=== PATIENT | female | born 1955 | race Caucasian/White ===

== ENCOUNTER 2020-01-11 10:57 | Outpatient (CLI) | payer MEDICARE, MEDICAID, SELFPAY ==
[2020-01-11 11:25] LABS: Basophils # 0.1 10^3/uL (0.0-0.1); Basophils % 1.2 %; Eosinophils # 0.2 10^3/uL (0.0-0.8); Eosinophils % 3.9 %; Hematocrit 42.9 % (37.0-47.0); Hemoglobin 13.4 g/dL (11.5-15.3); Lymphocytes # 1.4 10^3/uL (0.8-4.8); Mean Corpuscular HGB Conc 31.2 g/dL (30.0-36.0); Mean Corpuscular Hemoglobin 30.9 pg (28.0-34.0); Mean Corpuscular Volume 98.8 fL (81-99); Mean Platelet Volume 9.4 fL (7.4-10.4); Monocytes # 0.5 10^3/uL (0.2-0.9); Monocytes % 9.7 %; Neutrophils # 2.9 10^3/uL (1.8-7.7); Nucleated Red Blood Cells % 0 %; Platelet Count 212 10^3/cmm (130-400); Red Blood Count 4.34 10^6/uL (4.1-5.3); Red Cell Distribution Width 12.6 % (12.1-15.1); White Blood Count 5.1 10^3/uL (4.0-10.0)
[2020-01-11 11:47] LABS: Alanine Aminotransferase 14 U/L (0-33); Alkaline Phosphatase 87 IU/L (35-105); Anion Gap 17.1 (5-19); Aspartate Amino Transferase 16 U/L (0-32); Blood Urea Nitrogen 11 mg/dL (8-23); Calcium 9.1 mg/dL (8.5-10.5); Carbon Dioxide 23 mmol/L (22-29); Chloride 104 mmol/L (98-107); Globulin 3.2 g/dL (1.3-4.6); Glucose 100 mg/dL (65-115); Osmolality Calculated 286 mOsm/kg (285-295); Potassium 4.1 mmol/L (3.5-5.1); Sodium 140 mmol/L (136-145); Total Bilirubin 0.5 mg/dL (0.15-1.2); Total Protein 7.2 g/dL (6.6-8.7)
--- NOTE | 2020-01-11 13:29 | ONC FU_ITS ---
Dr. Her follow up note Patient: Peg Goodman Unit #: [id number]: 1955 Dicatated By: Cherelle Her M.D.Date of Visit:Jan 11, 2020 Onc Med Follow-up/Prog Note History of Present Illness: Mrs. Peg Goodman , is a 64-year-old female with history of persistent gastroesophageal reflux, bloating, recently underwent EGD on 02/15/2019 which showed semi-pedunculated polyp 2 x 5 mm in size, benign in appearance, nonbleeding , was excised and final pathology report came back 0.5 cm, unifocal well-differentiated neuroendocrine tumor mitotic rate less than to mitosis per 2 mm. Ki-67 index was less than 3%. Tumor extension in the mucosa. Lymphovascular invasion was not seen and regional lymph node were not submitted. So it was pT1 lesion. Chromogranin a level was checked on 03/31/2019 was 67 normal being less than 140 Colonoscopy was done which was of poor prep no abnormality was seen otherwise except multiple medium size diverticula present in sigmoid colon. CT scan of abdomen pelvis was done on 04/05/2019 as a follow-up and showed no evidence of metastatic disease, Octreotide scan Done on 05/03/2019 showed no evidence of metastatic disease Patient denies any facial flushing patient denies any shortness of breath or wheezing patient denies any diarrhea or skin rash. Patient denies any abdominal pain patient denies any weight loss. Came for follow-up, denies any specific complaints, no fever or chills, no nausea or vomiting, no diarrhea or constipation, no facial flushing, no wheezing, appetite is good. No abdominal pain. Patient recently underwent EGD/upper GI endoscopic sonogram on January 09, 2020 at [facility] in [facility]. As per patient she was told there was no abnormality seen except mild hiatal hernia with some inflammation. Medications: Calcium 600 1 Tablet (of 600 mg) Oral t.i.d., Sertraline HCl 1 Tablet (of 100 mg) Oral daily Allergies: No Known Allergies. Review of Systems: Review of Systems is not available for this patient. Vital Signs: Performed on Jan 11, 2020 12:31 Height - 61.00 in Weight - 147.8 lbs (HIGH) BSA - 1.66 sq.m BMI - 27.93 Temperature - 98.4 F Pulse - 75 /min Respiration - 20 /min BP - 138/67 mm(hg) O2 Sat - 97 % Pain - 0 Performance Status: 0 - Fully active, able to carry on all predisease activities without restrictions. (ECOG) Physical Examination: ENMT - No mouth sores, no thrush, no jaundice, Respiratory - Lungs are clear to auscultation, Cardiovascular - Regular rate and rhythm of heart, Abdomen - Soft, bowel sounds present, nontender, no mass palpable. Lab/Imaging: Most recent lab results are not available for this patient. Impression: Low-grade neuroendocrine tumor involving duodenal polyp status post polypectomy done on 02/15/2019 Final pathology report showed unifocal, 0.5 cm, well-differentiated neuroendocrine tumor in duodenal polyp, tumor extension into mucosa, no lymphovascular invasion was seen. No regional lymph node were submitted. As it was an incidental finding pT1.Nx,Mx CT scan of abdomen pelvis done on 04/05/2019 showed no lymphadenopathy no cervical mass no other abnormality Mitotic index was less than 2 per 2 mm Chromogranin A level checked on 03/31/2019 was 67 normal being 25-140 Octreotide scan done on 05/03/2019 showed no evidence of metastatic disease Colonoscopy done on 02/15/2019 showed no abnormality except medium-sized diverticula in sigmoid colon Plan: Discussed with patient regarding her labs white blood count 5.1 hemoglobin 13.4 crit of 42.9 platelets 212,000 CMP within normal limits Clinically, patient is doing well with no signs symptoms suggestive of recurrence of carcinoid tumor. As per patient, last Wednesday she underwent upper GI endoscopic ultrasound at [facility] in [place], and it showed no abnormality except mild hiatal hernia with mild inflammation. Her lab work-up is within normal range at this point we will see her on as-needed basis and she will continue to follow-up with Dr. ramos and her PMD. Signed By: Cherelle Her M.D. <<Signature on File>>
== END 2020-01-11 10:58 | disposition home or self-care (01) ==
LOC: ONCMED 11:00
PROVIDERS: PCP Family Medicine; Visit Provider Internal Medicine Hematology & Oncology
DX: Z08 Encounter for follow-up examination after completed treatment for malignant neoplasm (principal); Z85.060 Personal history of malignant carcinoid tumor of small intestine; K57.30 Diverticulosis of large intestine without perforation or abscess without bleeding; K44.9 Diaphragmatic hernia without obstruction or gangrene; Z86.010 Personal history of colon polyps
CPT/HCPCS: 36415; 80053; 85025; G0463

== ENCOUNTER → 2020-04-18 09:02 | Outpatient (BNVA) | payer MEDICARE, MEDICAID, SELFPAY | PROVIDERS: PCP Family Medicine; Visit Provider Family Medicine | DX: Z13.6 Encounter for screening for cardiovascular disorders (principal) | CPT/HCPCS: 80061 ==

== ENCOUNTER 2020-05-07 09:46 | Outpatient (CLI) | payer MEDICARE, MEDICAID, SELFPAY ==
--- NOTE | 2020-05-07 10:00 | MM_ITS ---
WS: [id number] BILATERAL SCREENING DIGITAL MAMMOGRAM WITH CAD HISTORY: screening mammogram COMPARISON: 01/16/2019, 04/09/2014 and 04/25/2012 Bilateral CC and MLO views submitted. Computer aided detection analyzed. Breast composition: The breasts are heterogeneously dense, which may obscure small masses. No suspici ous masses, microcalcifications or architectural distortion. Asymmetries bilaterally and dense fibrog landular tissue. No interval change or distortion. MM/[place] [id number] IMPRESSION: BI-RADS: 2-Benign FOLLOW UP: 1 Year Follow-up
== END 2020-05-07 09:47 | disposition home or self-care (01) ==
LOC: RADSHAW 09:48
PROVIDERS: PCP Family Medicine; Visit Provider Family Medicine
DX: Z12.31 Encounter for screening mammogram for malignant neoplasm of breast (principal)
CPT/HCPCS: 77067

== ENCOUNTER 2020-05-07 10:19 | Outpatient (CLI) | payer MEDICARE, MEDICAID, SELFPAY ==
--- NOTE | 2020-05-07 10:26 | US_ITS ---
WS: [id number] US soft tissue/extremity [id number] REASON FOR EXAM: right leg soft tissue mass FINDINGS: The region of clinical concern in the right lower leg was interrogated with real-time muñoz scale ultr asound. Somewhat ill-defined focus of hyper echogenicity measuring 6.2 x 5.2 x 8.7 mm was identified in the abundant subcutaneous fat. The finding is very nonspecific possibly this could represent a sma ll hematoma or infarcted or inflammatory fat. There was no blood flow in this abnormality. US/US soft tissue/extremity [id number] IMPRESSION: Nonspecific small subcutaneous fat lesion without color flow possibly inflamed fat or small hematoma. Possibly this could represent a lipoma however usually t here is less difference in echogenicity from the subcutaneous fat.
== END 2020-05-07 10:20 | disposition home or self-care (01) ==
LOC: RAD 10:23
PROVIDERS: PCP Family Medicine; Visit Provider Family Medicine
DX: R22.41 Localized swelling, mass and lump, right lower limb (principal)
CPT/HCPCS: 76882

== ENCOUNTER 2020-05-27 10:25 | Outpatient (CLI) | payer MEDICARE, MEDICAID, SELFPAY ==
--- NOTE | 2020-05-27 10:29 | CT_ITS ---
WS: [id number] NONCONTRAST CT RIGHT LOWER EXTREMITY TECHNIQUE: Noncontrast CT right lower extremity with coronal and sagittal reformatted images. CLINICAL INFORMATION: MASS OF RIGHT LOWER EXTREMITY COMPARISON: Ultrasound May 07, 2020 DLP: 1650.[address] scans at [facility] use at least one of these dose optimization techniques: automat ed exposure control; mA and/or kV adjustment per patient size (includes targeted exams where dose is matched to clinical indication); or iterative reconstruction. FINDINGS: Palpable marker overlying the left medial knee soft tissues. Normal underlying subcutaneous fat. Tiny amount of induration in the underlying subcutaneous fat which is otherwise normal in appearance. No evidence of cystic or solid lesion or drainable fluid collection. No circumscribed lesions. No significant joint effusion. Normal popliteal fossa. Vascular calcification. CT/CT lower leg RT w con [id number] IMPRESSION: 1. No evidence of underlying mass or lesion in the area of concern. No drainab le fluid collections. 2. Tiny amount of induration in the subcutaneous soft tissues in the lateral k nee likely inflammatory or posttraumatic. 3. No other significant findings.
[2020-05-27 10:52] LABS: Blood Urea Nitrogen 17 mg/dL (8-23); Glomerular Filtration Rate 84.5 mL/min (90-130)
[2020-05-27] MEDS: iohexol 300 mg/mL 100 mL Btl IV (11:05)
== END 2020-05-27 10:26 | disposition home or self-care (01) ==
LOC: RADWPI 10:29
PROVIDERS: Family Provider Family Medicine; PCP Family Medicine; Visit Provider Surgery
DX: M79.89 Other specified soft tissue disorders (principal)
CPT/HCPCS: 73701; 82565; 84520; Q9967

== ENCOUNTER → 2021-05-16 09:12 | Outpatient (BNVA) | payer MEDICARE, MEDICAID, SELFPAY | PROVIDERS: Family Provider Family Medicine; PCP Family Medicine; Visit Provider Family Medicine | DX: Z13.6 Encounter for screening for cardiovascular disorders (principal); Z12.11 Encounter for screening for malignant neoplasm of colon; Z23 Encounter for immunization; F41.9 Anxiety disorder, unspecified; F32.9 Major depressive disorder, single episode, unspecified; Z79.899 Other long term (current) drug therapy | CPT/HCPCS: 80053; 80061; 85025 ==

== ENCOUNTER → 2021-07-07 15:44 | Outpatient (BNVA) | payer MEDICARE, MEDICAID, SELFPAY | PROVIDERS: Family Provider Family Medicine; PCP Family Medicine; Visit Provider Surgery | DX: Z01.812 Encounter for preprocedural laboratory examination (principal); Z20.822 Contact with and (suspected) exposure to COVID-19 | CPT/HCPCS: 87635 ==

== ENCOUNTER 2021-07-11 08:09 | Day surgery (SDC) | payer MEDICARE, MEDICAID, SELFPAY ==
[2021-07-10 14:51] VITALS: BMI 27.3
--- NOTE | 2021-07-11 08:19 | ANES.PREANE2 ---
Pre-Anesthetic Assessment Pre-Anesthetic Assessment: Height/Weight: Height 1.55 m Weight 65.771 kg Preop Diagnosis: Abomdinal pain Proposed Procedure: Operation Date: 07/11/21 09:30 Proposed Procedures p EGD 43212 K34.0(Not Applicable) - Eduardo Dickerson MD Familial anesthetic complications: None Last intake: > 8hs Social: Social History: No alcohol and No tobacco Exam: Pre-Anes Outpt Exam: alert, oriented x 3, clear to auscultation bilaterally and regular rate & rhythm Airway: MP: 2 Dentition: Chipped and Other (missing) GI: Comments: hx of duodneal carcinoid (removed) Anesthetic Plan: ASA status: 1 Anesthesia: MAC Risk of > 500 ml blood loss (7ml/kg in children): No PFSH Anesthesia PFSH: Medical History Anxiety and depression Surgical History H/O colonoscopy 10 years ago H/O esophagogastroduodenoscopy 03/20 History of carpal tunnel release History of hysterectomy partial History of lumpectomy left History of tubal ligation Family History Brother Lung disease Sister Lupus Father ALS (amyotrophic lateral sclerosis) Denies family history of Diabetes CAD (coronary artery disease) Anesthesia complication Bleeding disorder Cancer Social History Alcohol intake: current Alcohol intake frequency: holidays/special occasions only Household members: significant other Marital status: Single Current occupational status: disabled History of recent travel: No Data Anesthesia Cardiac Studies: No Data to Display
[2021-07-11 08:41] VITALS: BP 145/77; PULSE 74; RESP 16; TEMP 36.3; O2SAT 96
[2021-07-11] MEDS: sodium chloride 0.9% 1,000 ML 30 ML IV (08:51)
--- NOTE | 2021-07-11 08:59 | P.HP_ITS ---
Same Day Surgery H&P Indication for Procedure/HPI DATE OF PROCEDURE: July 11, 2021 CHIEF COMPLAINT/INDICATIONFOR SURGICAL PROCEDURE: History of duodenal carcinoid PREOP DIAGNOSIS: Abomdinal pain PLANNED PROCEDRUE: Operation Date: 07/11/21 09:30 Proposed Procedures p EGD 93753 K34.0(Not Applicable) - Eduardo Dickerson MD 05/26/2021 This is a pleasant 65 years old female patient well-known to me from previous clinical encounters and she undergone an EGD that was found to have an incidental carcinoid disease on duodenal polyp 02/15/2019. And also patient has history of colon polyps. She denies bleeding per rectum or history of colon cancer. Patient is referred to me for surveillance EGD for her carcinoid incidental fi nding and surveillance colonoscopy. An attempted colonoscopy was done in the past but the patient's prep was suboptimal and inadequate and thus it was postponed to a later date 07/11/2021 Patient is coming today for surveillance EGD and colonoscopy, yet the patient apparently got sick to her stomach because of the colon prep and she is not able to proceed with a colonoscopy today ROS All systems have been reviewed negative except as per the above or per problem Medications/Allergies* Allergies/Adverse Reactions Allergy/AdvReac Type Severity Reaction Status Date / Time No Known Allergies Allergy Verified 07/11/21 09:00 Current Medications: Generic Name Dose Route Start Last Admin Trade Name Freq PRN Reason Stop Dose Admin Sodium Chloride 1,000 mls @ 30 mls/hr 07/11/21 08:30 07/11/21 08:51 Sodium Chloride 0.9% IV 30 mls/hr .Q24H SHARON Administration Pertinent History/Comorbid Conditions* Medical History (Updated 05/29/21 @ 16:27 by Eduardo Dickerson MD) Anxiety and depression Surgical History (Updated 08/31/19 @ 09:32 by Eduardo Dickerson MD) H/O colonoscopy 10 years ago H/O esophagogastroduodenoscopy 03/20 History of carpal tunnel release History of hysterectomy partial History of lumpectomy left History of tubal ligation Family History (Updated 08/30/19 @ 13:48 by Mary Boss LPN) ALS (amyotrophic lateral sclerosis) Father Lupus Sister Lung disease Brother Denies family history of Diabetes CAD (coronary artery disease) Anesthesia complication Bleeding disorder Cancer Social History Alcohol intake: current Alcohol intake frequency: holidays/special occasions only Household members: significant other Marital status: Single Current occupational status: disabled History of recent travel: No Pertinent Exam Findings alert, oriented x 3 and procedure specific exam findings (Abdominal examination nontender nondistended soft) Recommendations Surgery/Procedure today (EGD with possible biopsy) Coding Level of Care Code Acute [employer] for Alin Bennett
[2021-07-11 09:54] VITALS: BP 127/69; PULSE 81; RESP 16; TEMP 36.3; O2SAT 99
--- NOTE | 2021-07-11 09:59 | ANE.PACU2 ---
Inpatient post-anesthesia follow up: Airway intact: Yes Vital signs: Temperature 97.4 F Pulse Rate 74 Respiratory Rate 16 Blood Pressure 145/77 Pulse Oximetry 96 Oxygen Delivery Me thod Room Air Oxygen Flow Rate Fraction of Inspir ed Oxygen Hydration adequate: Yes Nausea and vomiting: No Mental status: Baseline
[2021-07-11 10:04] VITALS: BP 129/72; PULSE 78; RESP 16; O2SAT 97
[2021-07-14 06:32] LABS: H. Pylori / CLO Test Negative
== END 2021-07-11 10:21 | disposition home or self-care (01) ==
PROVIDERS: PCP Family Medicine; Visit Provider Surgery
PROC: 0DJ08ZZ Inspection of Upper Intestinal Tract, Via Natural or Artificial Opening Endoscopic (ICD-10-PCS; CPT 43235; principal; 2021-07-11 09:30)
DX: Z12.11 Encounter for screening for malignant neoplasm of colon (principal); K21.00 Gastro-esophageal reflux disease with esophagitis, without bleeding; K29.70 Gastritis, unspecified, without bleeding; Z86.010 Personal history of colon polyps
CPT/HCPCS: 43239; 87077; 96360; J2704; J7030

== ENCOUNTER → 2022-08-10 11:33 | Outpatient (BNVA) | payer MEDICARE, MEDICAID, SELFPAY | PROVIDERS: PCP Family Medicine; Visit Provider Family Medicine | DX: Z13.6 Encounter for screening for cardiovascular disorders (principal) | CPT/HCPCS: 80053; 80061; 85025 ==

== ENCOUNTER 2022-09-04 12:28 | Outpatient (CLI) | payer MEDICARE, MEDICAID, SELFPAY ==
--- NOTE | 2022-09-04 12:46 | MM_ITS ---
WS: [id number] Bilateral screening 3D tomosynthesis digital mammogram, 09/04/2022 Clinical Data: SCREENING Comparison: 05/07/2020, 01/16/2019, 04/09/2014, 04/25/2012. Findings: The breast parenchymal pattern shows heterogeneous density. No spiculated masses or clustered calcifi cations are seen. There are no secondary signs of carcinoma. There are mole markers on the right tram [place]. MM/[place] [id number] Impression: 1. Negative bilateral mammogram unchanged. 2. Recommend annual screening mammograms. BIRADS: 1-Negative FOLLOW UP: 1 Year Follow-up The CAD electric organ checker was used.
== END 2022-09-04 12:29 | disposition home or self-care (01) ==
LOC: RAD 12:32
PROVIDERS: PCP Family Medicine; Visit Provider Family Medicine
DX: Z12.31 Encounter for screening mammogram for malignant neoplasm of breast (principal)
CPT/HCPCS: 77063; 77067

== ENCOUNTER → 2023-02-10 16:04 | Outpatient (BNVA) | payer MEDICARE, MEDICAID, SELFPAY | PROVIDERS: PCP Family Medicine; Visit Provider Family Medicine | DX: R30.0 Dysuria (principal) | CPT/HCPCS: 81000; 87077; 87086; 87184 ==

== ENCOUNTER 2023-09-17 12:49 | Outpatient (CLI) | payer MEDICARE, MEDICAID, SELFPAY ==
--- NOTE | 2023-09-17 12:54 | MM_ITS ---
WS: [id number] BILATERAL 3D TOMOSYNTHESIS DIGITAL SCREENING MAMMOGRAPHY WITH CAD CLINICAL INFORMATION: SCREENING HISTORY: Screening mammogram. No current complaints. COMPARISON: 09/04/2022 TECHNIQUE: Bilateral CC and MLO views. FINDINGS: The breasts are composed of heterogeneous fibroglandular density tissue, which can limit the detectio n of small underlying mass lesions. No suspicious mass, asymmetry, calcifications, or architectural d istortion. No evidence of malignancy. A few incidental punctate and lucent centered calcifications. V ascular calcification. IMPRESSION: MM/[place] [id number] BI-RADS: 2-Benign FOLLOW UP: 1 Year Follow-up Recommend return to annual screening mammography.
== END 2023-09-17 12:50 | disposition home or self-care (01) ==
LOC: RAD 12:50
PROVIDERS: PCP Family Medicine; Visit Provider Family Medicine
DX: Z12.31 Encounter for screening mammogram for malignant neoplasm of breast (principal); R92.323 Mammographic fibroglandular density, bilateral breasts; R92.333 Mammographic heterogeneous density, bilateral breasts
CPT/HCPCS: 77063; 77067

== ENCOUNTER 2023-11-09 15:20 | Outpatient (CLI) | payer MEDICARE, MEDICAID, SELFPAY ==
[2023-11-15 14:04] LABS: Gastrin 311 pg/mL (< OR = 100)
[2023-11-20 13:58] LABS: Serotonin Whole Blood <10 ng/mL (56-244)
== END 2023-11-09 15:21 | disposition home or self-care (01) ==
LOC: LAB 15:21
PROVIDERS: PCP Family Medicine; Visit Provider Family Medicine
DX: E34.0 Carcinoid syndrome (principal)
CPT/HCPCS: 36415; 82941; 84260; 86316

== ENCOUNTER 2023-11-11 14:04 | Outpatient (CLI) | payer MEDICARE, MEDICAID, SELFPAY ==
[2023-11-23 14:43] LABS: Chromogranin A LC/MS/MS 192 ng/mL (ADULTS: <311)
[2023-11-26 16:34] LABS: 24 Hour Urine Volume 1500 mL; 5-HIAA, 24 Hour Urine 3.3 mg/24 h (< OR = 6.0)
== END 2023-11-11 14:05 | disposition home or self-care (01) ==
LOC: LAB 14:07
PROVIDERS: PCP Family Medicine; Visit Provider Family Medicine
DX: E34.0 Carcinoid syndrome (principal)
CPT/HCPCS: 36415; 83497; 86316

== ENCOUNTER 2023-12-22 15:35 | Outpatient (CLI) | payer MEDICARE, MEDICAID, SELFPAY ==
--- NOTE | 2023-12-22 16:30 | CT_ITS ---
WS: [id number] CT ABDOMEN AND PELVIS WITH CONTRAST HISTORY: duodenal carcinoid, elevated gastrin TECHNIQUE: Imaging performed of the abdomen and pelvis with IV contrast. Single phase imaging of the abdomen. Coronal and sagittal reformats are submitted. All CT scans at [facility] use at [facility] st one of these dose optimization techniques: automated exposure control; mA and/or kV adjustment per patient size (includes targeted exams where dose is matched to clinical indication); or iterative re construction. IV CONTRAST: Omnipaque 350; 100 mL IV. Oral contrast: Yes. DLP: 417.76 mGy.cm COMPARISON: 04/05/2019 Lower thorax: Subsegmental atelectasis adjacent to the RIGHT heart. Heart is normal size. No hiatal h ernia. Liver/biliary system: Normal size liver. No metastatic lesions within the liver. Normal portal vein a nd bile ducts. Gallbladder: Normal. No gallstones or wall thickening. No pericholecystic fluid. Pancreas: Normal size pancreas and pancreatic duct. No adjacent inflammation. Spleen: Normal size spleen. No mass or infarct. Adrenal glands: Normal. Right kidney: Normal. Left kidney: Normal. Aorta: Minimal atherosclerosis. No aneurysm. Normal enhancement of the celiac axis and SMA. Lymphadenopathy: None. No soft tissue masses associated with the small bowel to suggest a carcinoid t umor. There is no distortion or tethering. Free fluid: None. GI tract: Normally distended stomach and small bowel. Mildly tortuous colon with constipation. No tet anjana or mass. Abdominal wall: Unremarkable abdominal wall. No hernia. Pelvis: No free fluid or adenopathy within the pelvis. Small cyst associated with the RIGHT ovary yoana sures 1.8 x 1.5 cm. There are few calcifications associated with the small caliber atrophied LEFT ova ry. Similar findings noted on prior study. Bones: Mild L4 anterolisthesis. Mild facet arthritis at L4-5. CT/CT abdomen pelvis w con* [id number] IMPRESSION: 1. No adenopathy or evidence for carcinoid tumor identified by CT. 2. No ascites. 3. No metastatic disease to the liver. 4. No GI tract obstruction.
[2023-12-22] MEDS: iohexol 350 mg/mL 500 mL Btl (per mL) PO (17:06)
[2023-12-22] MEDS: iohexol 350 mg/mL 500 mL Btl (per mL) IV (17:40)
[2023-12-22 18:13] LABS: Blood Urea Nitrogen 17 mg/dL (8-23); Glomerular Filtration Rate 62.5 mL/min (90-130)
== END 2023-12-22 15:36 | disposition home or self-care (01) ==
PROVIDERS: PCP Family Medicine; Visit Provider Family Medicine
DX: J98.11 Atelectasis (principal); Z85.060 Personal history of malignant carcinoid tumor of small intestine; Q43.8 Other specified congenital malformations of intestine; N83.201 Unspecified ovarian cyst, right side; N83.8 Other noninflammatory disorders of ovary, fallopian tube and broad ligament; N83.312 Acquired atrophy of left ovary; M43.16 Spondylolisthesis, lumbar region; M47.816 Spondylosis without myelopathy or radiculopathy, lumbar region
CPT/HCPCS: 74177; 82565; 84520; Q9967

== ENCOUNTER → 2024-07-12 14:37 | Outpatient (BNVA) | payer MEDICARE, MEDICAID, SELFPAY | DX: R53.83 Other fatigue (principal); D64.9 Anemia, unspecified; M72.2 Plantar fascial fibromatosis; F41.9 Anxiety disorder, unspecified; F32.9 Major depressive disorder, single episode, unspecified | CPT/HCPCS: 80053; 83550; 85025 ==

== ENCOUNTER 2024-10-23 14:26 | Outpatient (CLI) | payer MEDICARE, MEDICAID, SELFPAY ==
--- NOTE | 2024-10-23 14:40 | MM_ITS ---
WS: [id number] BILATERAL 3D TOMOSYNTHESIS DIGITAL SCREENING MAMMOGRAPHY WITH CAD CLINICAL INFORMATION: screening HISTORY: Screening mammogram. No current complaints. COMPARISON: 2023 TECHNIQUE: Bilateral CC and MLO views. FINDINGS: The breasts are composed of heterogeneous fibroglandular density tissue, which can limit the detection of small underlying mass lesions. No suspicious mass, asymmetry, calcifications, or architectural distortion. No evidence of malignancy. Vascular calcifications. A few benign calcifications RIGHT breast. Stable nodular RIGHT breast tissue. MM/MM [facility] tomosynthesis [id number] IMPRESSION: DENSITY: The breasts are heterogeneously dense, which may obscure small masses. BI-RADS: 2 - Benign FOLLOW UP: 1 Year Follow-up Recommend return to annual screening mammography.
== END 2024-10-23 14:27 | disposition home or self-care (01) ==
LOC: RAD 14:27
PROVIDERS: PCP Family Medicine; Visit Provider Family Medicine
DX: Z12.31 Encounter for screening mammogram for malignant neoplasm of breast (principal); R92.333 Mammographic heterogeneous density, bilateral breasts; R92.1 Mammographic calcification found on diagnostic imaging of breast; N64.89 Other specified disorders of breast
CPT/HCPCS: 77063; 77067